=== PATIENT | female | born 1970 | race African-American/Black ===

== ENCOUNTER → 2016-10-17 | Day surgery (SDC) | payer OTHER ==
[~2016-10-17] MED LIST: ACID CONTROL150 MG PO; ALEVE220 M1 PO; ANTI GAS PO; BEANO150 UNIT PO; CHARCOAL, ACTI260 MG PO; FOOD ENZYME PO; GAS-X125 MG PO; LINZESS290 MCG PO; LORTAB 5/500 TA1 TA1 PO; ORUDIS75 M1 DOB; ORUDIS75 M1 PO; ZANTAC PO
--- NOTE | ~2016-10-17 | OR ---
Unit #: [id number] #: [id number] Patient: CHARLIE SHEA [id number] [address] [address] [id number] O MR#: [id number] NAME: CHARLIE SHEA ROOM: Date of Procedure: 10/17/2016 Admission Date: 10/17/2016 Surgeon: Zachary Jeffries III, M.D. : 1970 Attending Physician: Zachary Jeffries III, M.D. Primary Care Physician: Nely Whittington A.P.R.N. OPERATIVE REPORT PREOPERATIVE DIAGNOSES Abdominal pain, rectal bleeding, and history of colon polyps. POSTOPERATIVE DIAGNOSIS Sigmoid diverticulosis. PROCEDURE PERFORMED Colonoscopy to cecum. ANESTHESIA MAC. SPECIMENS None. COMPLICATIONS None apparent. INDICATIONS FOR PROCEDURE This is a 46-year-old lady, who has some intermittent abdominal pain, history of rectal bleeding, and a personal history of polyps. She had a CT scan, which showed probably some endometrial thickening adjacent to the colon. She is here today for colonoscopy. DESCRIPTION OF PROCEDURE After consent was obtained, the patient was brought to the endoscopy suite and placed in the left lateral decubitus position. We titrated the above sedation and I performed a rectal exam, and I did not feel any masses. The scope was placed within the rectal vault. Air was insufflated. I navigated the scope all the way to the cecum without any difficulty. She had normal mucosa. No evidence any polyps or masses, and she had moderate sigmoid diverticulosis. The scope was retroflexed within the rectum. No other masses were seen. The scope was then carefully withdrawn. The patient tolerated the procedure without any problems and returned to the recovery room in stable condition. Dictated by... Zachary Jeffries III, M.D. VCL/karenl Unit #: [id number] #: [id number] Patient: CHARLIE SHEA TD: 10/17/2016 13:27 JOB #: [id number] OPERATIVE REPORT Page 1 of 1 X Zachary Jeffries III, MD X PROCEDURE OPERATIVE NOTE
== END | disposition home or self-care (01) ==
LOC: COPS 09:55
DX: K57.30 Diverticulosis of large intestine without perforation or abscess without bleeding (principal); K21.9 Gastro-esophageal reflux disease without esophagitis; M19.90 Unspecified osteoarthritis, unspecified site; K59.09 Other constipation; E66.01 Morbid (severe) obesity due to excess calories; M41.9 Scoliosis, unspecified; F17.210 Nicotine dependence, cigarettes, uncomplicated; Z82.49 Family history of ischemic heart disease and other diseases of the circulatory system; Z83.3 Family history of diabetes mellitus; Z86.010 Personal history of colon polyps; Z98.51 Tubal ligation status; Z90.710 Acquired absence of both cervix and uterus; Z98.890 Other specified postprocedural states; Z68.41 Body mass index [BMI] 40.0-44.9, adult; Z79.1 Long term (current) use of non-steroidal anti-inflammatories (NSAID); Z79.899 Other long term (current) drug therapy; Z80.0 Family history of malignant neoplasm of digestive organs
CPT/HCPCS: J2250

== ENCOUNTER → 2016-11-21 | Outpatient (CLI) | payer OTHER ==
--- NOTE | ~2016-11-21 | MR113 ---
[facility] A Service of [facility] [place] RADIOLOGY TEXT RESULTS PATIENT: CHARLIE SHEA LOCATION: [facility] : [birth year] UNIT #: [id number] AGE: [address]: Nely Whittington APRN SEX: F ORDER DR: [id number] [address] [address] [id number] O MR#: [id number] Acc #: [id number] NAME: CHARLIE SHEA : 1970 SEX: F STUDY DATE/TIME: 11/21/2016 10:34 UNIT: [facility] ROOM: STUDY DESCRIPTION: MR Lumbar Wo Contrast Attending Physician: Nely Whittington A.P.R.N. Referring Physician: Nely Whittington A.P.R.N. Ordering Physician: Nely Whittington A.P.R.N. Primary Care Physician: Susan Isidro M.D. MRI CENTER REPORT This report is preliminary unless electronic signature is present. EXAM MRI of the lumbar spine without contrast HISTORY Continued low back pain for over 2 years. No specific injury. Pain favors right side. COMPARISON MRI of the lumbar spine, 11/10/2014. TECHNIQUE Multiplanar multi-echo images of the lumbar spine utilizing a high-field magnet and dedicated protocol. FINDINGS Normal spinal alignment. Lumbar vertebral marrow signal appears normal with exception of T1 hyperintensity within L3 vertebral body, most likely representing hemangioma. Normal termination of the conus. Patient does demonstrate exaggerated lumbar lordosis. At L1-L2, the disc spaces maintained. No spinal or foraminal stenosis. At L2-L3, disc spaces maintained. No spinal or foraminal stenosis. Posterior elements unremarkable. At L3-L4, disc space is maintained. No spinal or foraminal stenosis. Mild left L3-L4 facet arthropathy. At L4-L5, there is mild disc desiccation. Mild circumferential disc bulging with mild left L4-L5 foraminal narrowing. There is moderate bilateral L4-L5 facet arthropathy with a small amount of facet joint fluid. [facility] A Service of [facility] [place] RADIOLOGY TEXT RESULTS PATIENT: CHARLIE SHEA LOCATION: [facility] : [birth year] UNIT #: [id number] AGE: [address]: Nely Whittington APRN SEX: F ORDER DR: At L5-S1, disc space is maintained. No spinal or foraminal stenosis. Bilateral L5-S1 facet arthropathy, right greater than left. SI joints and paravertebral soft tissues appear normal. IMPRESSION The predominant abnormality is bilateral L4-L5 and bilateral L5-S1 facet arthropathy with ociuocfb-ov-wustxm facet disease. Minimal foraminal stenosis noted on the left at L4-L5 but no focal disc protrusions or herniations identified. Overall, study not significantly changed from November 2014. Dictated by... Alan Elizabeth M.D. THIS IS AN ELECTRONICALLY VERIFIED REPORT Alan Elizabeth M.D. at 11/25/2016 1:32 PM FADY/javid TD: 11/25/2016 01:20 JOB #: [id number] MRI CENTER REPORT Page 1 of 1
== END | disposition home or self-care (01) ==
LOC: SMRI 09:40
DX: M54.9 Dorsalgia, unspecified (principal); M46.96 Unspecified inflammatory spondylopathy, lumbar region; M46.97 Unspecified inflammatory spondylopathy, lumbosacral region
CPT/HCPCS: 72148